=== PATIENT | male | born 1950 | race Caucasian/White ===

== ENCOUNTER 2023-03-23 12:21 | Outpatient (RCR) | payer MEDICARE, SELFPAY | END 2023-03-23 23:59 | disposition home or self-care (01) | LOC: RPT 12:21 | PROVIDERS: ATTENDING PHYSICIAN Orthopaedic Surgery; PRIMARYCARE PHYSICIAN Family Medicine | DX: Z47.1 Aftercare following joint replacement surgery (principal); Z73.6 Limitation of activities due to disability; R26.89 Other abnormalities of gait and mobility; R26.2 Difficulty in walking, not elsewhere classified; M25.552 Pain in left hip; Z96.642 Presence of left artificial hip joint | CPT/HCPCS: 97110; 97163 ==

== ENCOUNTER 2023-03-31 10:49 | Outpatient (RCR) | payer MEDICARE, SELFPAY | END 2023-03-31 23:59 | disposition home or self-care (01) | LOC: RPT 10:49 | PROVIDERS: ATTENDING PHYSICIAN Orthopaedic Surgery; FAMILY PHYSICIAN Family Medicine | DX: Z47.1 Aftercare following joint replacement surgery (principal); Z96.642 Presence of left artificial hip joint; R26.89 Other abnormalities of gait and mobility ==

== ENCOUNTER 2023-04-19 08:39 | Outpatient (RCR) | payer MEDICARE, SELFPAY | END 2023-04-19 23:59 | disposition home or self-care (01) | LOC: RPT 08:39 | PROVIDERS: ATTENDING PHYSICIAN Orthopaedic Surgery; PRIMARYCARE PHYSICIAN Family Medicine | DX: Z47.1 Aftercare following joint replacement surgery (principal); Z73.6 Limitation of activities due to disability; R26.89 Other abnormalities of gait and mobility; R26.2 Difficulty in walking, not elsewhere classified; M25.552 Pain in left hip; Z96.642 Presence of left artificial hip joint | CPT/HCPCS: 97110; 97112 ==

== ENCOUNTER 2023-04-28 08:47 | Outpatient (RCR) | payer MEDICARE, SELFPAY | END 2023-04-28 23:59 | disposition home or self-care (01) | LOC: RPT 08:47 | PROVIDERS: ATTENDING PHYSICIAN Orthopaedic Surgery; PRIMARYCARE PHYSICIAN Family Medicine | DX: Z47.1 Aftercare following joint replacement surgery (principal); Z73.6 Limitation of activities due to disability; R26.2 Difficulty in walking, not elsewhere classified; R26.89 Other abnormalities of gait and mobility; Z96.642 Presence of left artificial hip joint | CPT/HCPCS: 97110; 97112 ==

== ENCOUNTER 2023-05-21 09:47 | Outpatient (RCR) | payer MEDICARE, SELFPAY | END 2023-05-21 23:59 | disposition home or self-care (01) | LOC: RPT 09:47 | PROVIDERS: ATTENDING PHYSICIAN Orthopaedic Surgery; FAMILY PHYSICIAN Family Medicine | DX: Z47.1 Aftercare following joint replacement surgery (principal); Z96.642 Presence of left artificial hip joint; R26.89 Other abnormalities of gait and mobility ==

== ENCOUNTER 2023-05-24 09:58 | Outpatient (RCR) | payer MEDICARE, SELFPAY | END 2023-05-24 10:02 | disposition home or self-care (01) | LOC: RPT 09:58 | PROVIDERS: ATTENDING PHYSICIAN Orthopaedic Surgery; FAMILY PHYSICIAN Family Medicine | DX: Z47.1 Aftercare following joint replacement surgery (principal); Z73.6 Limitation of activities due to disability; R26.89 Other abnormalities of gait and mobility; M25.552 Pain in left hip; Z96.642 Presence of left artificial hip joint | CPT/HCPCS: 97110 ==

== ENCOUNTER 2023-12-22 06:22 | Outpatient (RCR) | payer MEDICARE, SELFPAY | END 2023-12-22 23:59 | disposition home or self-care (01) | LOC: RPT 06:22 | PROVIDERS: ATTENDING PHYSICIAN Physician Assistant | DX: Z47.1 Aftercare following joint replacement surgery (principal); M70.62 Trochanteric bursitis, left hip; Z73.6 Limitation of activities due to disability; M25.552 Pain in left hip; M62.81 Muscle weakness (generalized); R26.89 Other abnormalities of gait and mobility; Z96.642 Presence of left artificial hip joint | CPT/HCPCS: 97110; 97162 ==

== ENCOUNTER 2024-01-19 07:54 | Outpatient (RCR) | payer MEDICARE, SELFPAY | END 2024-01-19 23:59 | disposition home or self-care (01) | LOC: RPT 07:54 | PROVIDERS: ATTENDING PHYSICIAN Physician Assistant | DX: M70.62 Trochanteric bursitis, left hip (principal); Z73.6 Limitation of activities due to disability; M25.552 Pain in left hip; M62.81 Muscle weakness (generalized); R26.89 Other abnormalities of gait and mobility | CPT/HCPCS: 97110; 97530 ==

== ENCOUNTER 2024-01-27 12:02 | Outpatient (RCR) | payer MEDICARE, SELFPAY | END 2024-02-01 07:39 | disposition home or self-care (01) | LOC: RPT 12:02 | PROVIDERS: ATTENDING PHYSICIAN Physician Assistant | DX: M70.62 Trochanteric bursitis, left hip (principal); Z73.6 Limitation of activities due to disability; M25.552 Pain in left hip; M62.81 Muscle weakness (generalized); R26.89 Other abnormalities of gait and mobility | CPT/HCPCS: 97110 ==

== ENCOUNTER → 2024-04-07 17:39 | Outpatient (REF) | payer MEDICARE, SELFPAY | LOC: MRI 3T 17:39 | PROVIDERS: ATTENDING PHYSICIAN Family Medicine | DX: M54.2 Cervicalgia (principal); G95.9 Disease of spinal cord, unspecified; R13.10 Dysphagia, unspecified | CPT/HCPCS: 72156; A9575 ==

== ENCOUNTER 2024-05-19 13:04 | Outpatient (RCR) | payer MEDICARE, SELFPAY | END 2024-05-19 23:59 | disposition home or self-care (01) | LOC: RPT 13:04 | PROVIDERS: ATTENDING PHYSICIAN Neurological Surgery; FAMILY PHYSICIAN Family Medicine | DX: M47.812 Spondylosis without myelopathy or radiculopathy, cervical region (principal); Z73.6 Limitation of activities due to disability | CPT/HCPCS: 97010; 97110; 97140; 97162 ==

== ENCOUNTER 2024-06-20 06:24 | Outpatient (RCR) | payer MEDICARE, SELFPAY | END 2024-06-20 23:59 | disposition home or self-care (01) | LOC: RPT 06:24 | PROVIDERS: ATTENDING PHYSICIAN Neurological Surgery; FAMILY PHYSICIAN Family Medicine | DX: M47.812 Spondylosis without myelopathy or radiculopathy, cervical region (principal); Z73.6 Limitation of activities due to disability | CPT/HCPCS: 97010; 97110; 97140 ==

== ENCOUNTER 2024-06-27 06:27 | Outpatient (RCR) | payer MEDICARE, SELFPAY | END 2024-06-27 08:17 | disposition home or self-care (01) | LOC: RPT 06:27 | PROVIDERS: ATTENDING PHYSICIAN Neurological Surgery; FAMILY PHYSICIAN Family Medicine | DX: M47.812 Spondylosis without myelopathy or radiculopathy, cervical region (principal); Z73.6 Limitation of activities due to disability | CPT/HCPCS: 97010; 97110; 97140 ==